=== PATIENT | female | born 1970 | race Caucasian/White ===

== ENCOUNTER 2020-12-27 18:10 | Emergency (ER) | payer BC ==
[2020-12-27] MEDS ORDERED: Bacitracin/Neomycin/Polymyxin B Oint 0.9 GM U/D Packet TOP ONE (18:44)
--- NOTE | 2020-12-27 19:00 | EDM.PDOC ---
ED HPI GENERAL MEDICAL PROBLEM - General Chief Complaint: Bite:Animal, Insect Stated Complaint: dog bite Time Seen by Provider: 12/27/20 18:34 Source of Information: Reports: Patient History Limitations: Reports: No Limitations - History of Present Illness INITIAL COMMENTS - FREE TEXT/NARRATIVE: Aleksandra is a 50 year old female who presents to ER with lacerations/puncture wounds from a dog bite. [place] family when the dog attacked. Was not provoked. 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 Patient has good range of motion to ankle. Has laceration to right inner ankle, puncture wound to left knee. Last tetanus she believes was one year ago. Onset: Today, Sudden Duration: Minutes: Location: Reports: Lower Extremity, Left, Lower Extremity, Right Quality: Reports: Ache, Throbbing Severity: Moderate Associated Symptoms: Reports: No Other Symptoms Bilateral Leg Pain Score (Numeric/FACES): 4 - Related Data Allergies Allergy/AdvReac Type Severity Reaction Status Date / Time morphine Allergy Irritabilit Verified 12/27/20 18:10 y prednisone Allergy Irritabilit Verified 12/27/20 18:10 y Sulfa (Sulfonamide Allergy Other Verified 12/27/20 18:15 Antibiotics) Home Meds: Home Meds Cholecalciferol (Vitamin D3) [Vitamin D] 2,000 unit PO DAILY 09/27/13 [History] Magnesium Oxide [Magnesium] 500 mg PO DAILY 09/27/13 [History] Past Medical History Respiratory History: Reports: PE Other Respiratory History: pe from s/p radical hysterectomy - Past Surgical History GI Surgical History: Reports: Cholecystectomy Female Surgical History: Reports: D&C, Hysterectomy Social & Family History - Family History Family Medical History: No Pertinent Family History - Tobacco Use Tobacco Use Status *Q: Never Tobacco User - Recreational Drug Use Recreational Drug Use: No ED ROS GENERAL - Review of Systems Review Of Systems: Comprehensive ROS is negative, except as noted in HPI. ED EXAM, ANIMAL BITE - Physical Exam Exam: See Below Exam Limited By: No Limitations General Appearance: Alert, WD/WN, No Apparent Distress Extremities: Normal Inspection Neurological: Alert, Oriented Skin Exam: Other (has two wounds, one puncture wound to left knee with obvious bruising. No drainage, wound is dry. Right medial ankle has 2 cm gaping wound. See procedure.) ED ANIMAL BITE PROCEDURES - Laceration/Wound Repair Right Medial Leg Lac/Wound Length In cm: 2 Appearance: Superficial, Linear Distal NVT: Neuro & Vascular Intact Anesthetic Type: Local Local Anesthesia - Lidocaine (Xylocaine): 1% Plain Local Anesthetic Volume: 3cc Skin Prep: Other (saf-clens) Exploration/Debridement/Repair: Wound Explored, Explored to Base Closed With: Sutures Suture Size: 4-0 # of Sutures: 2 Suture Type: Nylon, Interrupted, Simple Sterile Dressing Applied: Nurse Tetanus Status Addressed: Yes Complications: No Course - Vital Signs Last Recorded V/S: Last Vital Signs Temp 98 F 12/27/20 18:12 Pulse 93 12/27/20 18:12 Resp 16 12/27/20 18:12 BP 145/85 H 12/27/20 18:12 Pulse Ox 96 12/27/20 18:12 - Orders/Labs/Meds Meds: Medications Discontinued Medications Generic Name Dose Route Start Last Admin Trade Name Karla PRN Reason Stop Dose Admin Lidocaine HCl 5 ml 12/27/20 18:39 12/27/20 18:41 Lidocaine 1% 5 Ml Sdv INJECT 12/27/20 18:40 5 ml ONETIME ONE Administration Neomycin/Polymyxin/Bacitracin 1 each 12/27/20 18:44 12/27/20 18:51 Bacitracin/Neomycin/Polymyxin B Oint 0.9 Gm U/D Packet TOP 12/27/20 18:45 1 each ONETIME ONE Administration Departure - Departure Time of Disposition: 18:57 Disposition: Home, Self-Care 01 Condition: Good Clinical Impression: Laceration - Discharge Information *PRESCRIPTION DRUG MONITORING PROGRAM REVIEWED*: No *COPY OF PRESCRIPTION DRUG MONITORING REPORT IN PATIENT GENIE: No Instructions: Animal Bite, Adult, [id number] Referrals: Jayda Rosa NP [Primary Care Provider] - Forms: ED Department Discharge Additional Instructions: 1. Keep wound clean and dry 2. Triple antibiotic ointment to wound for the next 3 days 3. Keep covered when outside or exposed to the elements 4. Wound care instructions~ monitor for increased redness, swelling, foul odor or increased pain 5. Tylenol or ibuprofen for discomfort 6. Ice to affected areas tonight 7. Sutures out in 10 days 8. Call with any questions or concerns. Sepsis Event Note (ED) - Evaluation Sepsis Screening Result: No Definite Risk - Focused Exam Vital Signs: Vital Signs Temp Pulse Resp BP Pulse Ox 12/27/20 18:12 98 F 93 16 145/85 H 96
== END 2020-12-27 19:10 | disposition home or self-care (01) ==
LOC: CC.ED 18:10
DX: S91.011A Laceration without foreign body, right ankle, initial encounter (principal); Z88.6 Allergy status to analgesic agent; Z88.2 Allergy status to sulfonamides; Z88.8 Allergy status to other drugs, medicaments and biological substances; W54.0XXA Bitten by dog, initial encounter
CPT/HCPCS: 12001; 99283-25

== ENCOUNTER 2022-12-04 16:37 | Emergency (ER) | payer BC ==
[2022-12-04] MEDS ORDERED: Lidocaine 1% 5 ML VIAL INJECT ONE (16:55)
[2022-12-04] MEDS ORDERED: Bacitracin/Neomycin/Polymyxin B Oint 0.9 GM U/D Packet TOP ONE ×2 (17:06→17:36)
== END 2022-12-04 17:51 | disposition home or self-care (01) ==
LOC: CC.ED 16:37
DX: S61.211A Laceration without foreign body of left index finger without damage to nail, initial encounter (principal); Z88.5 Allergy status to narcotic agent; Z88.8 Allergy status to other drugs, medicaments and biological substances; W25.XXXA Contact with sharp glass, initial encounter
CPT/HCPCS: 12001; 99283; A9270-GY; J3490